=== PATIENT | female | born 1970 | race Caucasian/White ===

== ENCOUNTER 2016-05-10 13:18 | Inpatient (IN) | payer OTHER, MEDICARE ==
[~2016-05-10] VITALS: Ht 167.6 cm; Wt 89.5 kg
[~2016-05-10 13:18] MED LIST: LISI-519 PO
[2016-05-10 13:45] VITALS: BP 194/94; PULSE 85; RESP 17; TEMP 98.3; O2SAT 97
--- NOTE | 2016-05-10 14:07 | PD ---
HPI Chief Complaint: Psychiatric Symptoms Time Seen by Provider: 14:07 Travel History International Travel<30 days: No Contact w/Intl Traveler<30days: No Traveled to known affect area: No History of Present Illness HPI 45-year-old female presents to emergency department under Samaniego act for psychiatric evaluation. Patient has history of bipolar disorder, schizoaffective disorder. States that she should not be here and that she was trying to receive messages from the [employer]. Denies suicidal or homicidal ideations. Denies illicit drug use. Is concerned about her left discolored toenail and would like it evaluated. States that she was told that it will resolve on its own however she would like it tested. Denies any trauma. Denies any pain. PFSH Past Medical History Bipolar Disorder: Yes Anxiety: No Depression: No Cerebrovascular Accident: No Diminished Hearing: No Endocrine: No Gastrointestinal Disorders: No Genitourinary: No Hypertension: Yes Immune Disorder: No Implanted Vascular Access Dvce: No Musculoskeletal: No Neurologic: No Reproductive: No Respiratory: No Schizophrenia: Yes (??) Past Surgical History Ear Surgery: Yes Other Surgery: Yes (facial surger 1992, septum ) Social History Alcohol Use: No Tobacco Use: No Substance Use: No Allergies-Medications (Allergen,Severity, Reaction): Coded Allergies: No Known Allergies (Unverified , 03/14/16) Reported Meds & Prescriptions Reported Meds & Active Scripts Active Lisinopril 5 Mg Tab 5 Mg PO DAILY Review of Systems Except as stated in HPI: all other systems reviewed are Neg Physical Exam Narrative GENERAL: Well-nourished, well-developed female patient, with bizarre affect, labile moods, no acute distress SKIN: Warm and dry. Discoloration on the lateral aspect of the left great toenail. HEAD: Normocephalic. Atraumatic EYES: No scleral icterus. No injection or drainage. NECK: Supple, trachea midline. No JVD or lymphadenopathy. CARDIOVASCULAR: Regular rate and rhythm without murmurs, gallops, or rubs. RESPIRATORY: Breath sounds equal bilaterally. No accessory muscle use. GASTROINTESTINAL: Abdomen soft, non-tender, nondistended. MUSCULOSKELETAL: No cyanosis, or edema. Refill within normal limits. No erythema or edema. BACK: Nontender without obvious deformity. No CVA tenderness. Data Data Last Documented VS Vital Signs Date Time Temp Pulse Resp B/P Pulse Ox O2 Delivery O2 Flow Rate FiO2 05/10/16 20:49 52 18 150/79 98 Room Air 05/10/16 13:45 98.3 Orders Complete Blood Count With Diff (05/10/16 13:51) Comprehensive Metabolic Panel (05/10/16 13:51) Drug Screen, Random Urine (05/10/16 13:51) Psych Screen (05/10/16 13:51) Olanzapine Inj (Zyprexa Inj) (05/10/16 17:30) Diet Regular Basic (05/10/16 Dinner) Acetaminophen (Tylenol) (05/10/16 21:30) Magnesium Hydroxide Liq (Milk Of Magnesi (05/10/16 21:30) Al-Mag Hy-Si 40-40-4 Mg/Ml Liq (Mag-Al P (05/10/16 21:30) Nicotine 21 Mg Patch.24 Hr (Habitrol 21 (05/11/16 09:00) Remove Old Patch (05/11/16 21:00) Olanzapine Inj (Zyprexa Inj) (05/10/16 21:30) Lisinopril (Prinivil) (05/11/16 09:00) Labs Laboratory Tests Test 05/10/16 05/10/16 14:20 15:15 Urine Opiates Screen NEG Urine Barbiturates Screen NEG Urine Amphetamines Screen NEG Urine Benzodiazepines Screen NEG Urine Cocaine Screen NEG Urine Cannabinoids Screen NEG White Blood Count 6.2 TH/MM3 Red Blood Count 4.48 MIL/MM3 Hemoglobin 13.9 GM/DL Hematocrit 38.9 % Mean Corpuscular Volume 86.8 FL Mean Corpuscular Hemoglobin 31.1 PG Mean Corpuscular Hemoglobin 35.8 % Concent Red Cell Distribution Width 13.2 % Platelet Count 270 TH/MM3 Mean Platelet Volume 6.9 FL Neutrophils (%) (Auto) 65.3 % Lymphocytes (%) (Auto) 25.0 % Monocytes (%) (Auto) 8.3 % Eosinophils (%) (Auto) 0.9 % Basophils (%) (Auto) 0.5 % Neutrophils # (Auto) 4.1 TH/MM3 Lymphocytes # (Auto) 1.6 TH/MM3 Monocytes # (Auto) 0.5 TH/MM3 Eosinophils # (Auto) 0.1 TH/MM3 Basophils # (Auto) 0.0 TH/MM3 CBC Comment DIFF FINAL Differential Comment Sodium Level 141 MEQ/L Potassium Level 4.2 MEQ/L Chloride Level 108 MEQ/L Carbon Dioxide Level 26.9 MEQ/L Anion Gap 6 MEQ/L Blood Urea Nitrogen 13 MG/DL Creatinine 0.73 MG/DL Estimat Glomerular Filtration 86 ML/MIN Rate Random Glucose 100 MG/DL Calcium Level 9.1 MG/DL Total Bilirubin 0.6 MG/DL Aspartate Amino Transf 13 U/L (AST/SGOT) Alanine Aminotransferase 22 U/L (ALT/SGPT) Alkaline Phosphatase 57 U/L Total Protein 7.5 GM/DL Albumin 4.1 GM/DL MDM Medical Decision Making Medical Screen Exam Complete: Yes Emergency Medical Condition: Yes Medical Record Reviewed: Yes Differential Diagnosis Disorder versus personality disorder versus adjustment reaction disorder Narrative Course 45-year-old female presents to emergency department for evaluation. Patient feels that the FBI is attempting to get her. She has extensive psychiatric history. She appears without distress. Vital signs stable. Patient is imminently disruptive here in the triage ambulance call, arguing with other patients and staff. Lab work is without acute concern. Toxicology is negative. She is medically cleared to undergo psychiatric screening for further evaluation and disposition. Mental health screening discussed with the patient. Psychiatric screen ordered. Diagnosis Primary Impression: Paranoid personality disorder Condition: Stable Yolande Huang May 10, 2016 14:07
[2016-05-10 15:43] LABS: AUTOMATED NEUTROPHIL # 4.1 TH/MM3 (1.8-7.7); BASOPHIL % 0.5 % (0.0-2.0); EOSINOPHIL # 0.1 TH/MM3 (0-0.4); EOSINOPHIL % 0.9 % (0.0-4.0); HEMATOCRIT 38.9 % (35.0-46.0); HEMO FLAGS DIFF FINAL; LYMPHOCYTE # 1.6 TH/MM3 (1.0-4.8); MEAN CELL VOLUME 86.8 FL (80.0-100.0); MEAN CORPUSCULAR HEMOGLOBIN 31.1 PG (27.0-34.0); MEAN CORPUSCULAR HGB CONC 35.8 % (32.0-36.0); MONO % 8.3 % (0.0-8.0); NEUT % 65.3 % (16.0-70.0); PLATELET COUNT 270 TH/MM3 (150-450); RED BLOOD COUNT 4.48 MIL/MM3 (4.00-5.30); RED CELL DISTRIBUTION WIDTH 13.2 % (11.6-17.2); WHITE BLOOD COUNT 6.2 TH/MM3 (4.0-11.0)
[2016-05-10 16:08] LABS: ANION GAP 6 MEQ/L (5-15); AST (GOT) 13 U/L (15-37); BICARBONATE 26.9 MEQ/L (21.0-32.0); BLOOD UREA NITROGEN 13 MG/DL (7-18); CHLORIDE 108 MEQ/L (98-107); GLOMERULAR FILTRATION RATE 86 ML/MIN (>89); POTASSIUM 4.2 MEQ/L (3.5-5.1); SODIUM (NA) 141 MEQ/L (136-145)
[2016-05-10 16:12] LABS: ALKALINE PHOSPHATASE 57 U/L (45-117); ALT (GPT) 22 U/L (10-53); TOTAL BILIRUBIN ADULT 0.6 MG/DL (0.2-1.0)
[2016-05-10] MEDS ORDERED: OLANZapine IM 10 MG VIAL IM ONE (17:30)
[2016-05-10 18:25] LABS: AMPHETAMINE, URINE NEG (NEG); BARBITURATES, URINE NEG (NEG); COCAINE, URINE NEG (NEG)
[2016-05-10 18:26] VITALS: BP 179/100; PULSE 79; RESP 18; O2SAT 98
[2016-05-10 20:49] VITALS: BP 150/79; PULSE 52; RESP 18; O2SAT 98
[2016-05-10] MEDS ORDERED: OLANZapine IM 10 MG VIAL IM PRN (21:30)
[2016-05-10] MEDS ORDERED: ACETAMINOPHEN 325 MG TAB PO PRN (21:30)
[2016-05-10] MEDS ORDERED: MAGNESIUM HYDROXIDE SUSP 30 ML CUP PO PRN (21:30)
[2016-05-10] MEDS ORDERED: ALUMINUM/MAGNESIUM/SIMETH 30 ML CUP PO PRN (21:30)
[2016-05-10 22:44] VITALS: BP 150/77; PULSE 51; RESP 17; O2SAT 98
[2016-05-10 23:45] VITALS: BP 145/67; PULSE 66; RESP 18; TEMP 97.8; O2SAT 100
[2016-05-11 05:41] VITALS: PULSE 52; RESP 18; TEMP 97
[2016-05-11 05:42] VITALS: BP 130/78
[2016-05-11] MEDS ORDERED: NICOTINE 21 MG/24 HR PATCH T-DERMAL SCH (09:00)
[2016-05-11] MEDS ORDERED: LISINOPRIL 5 MG TAB PO SCH (09:00)
--- NOTE | 2016-05-11 10:52 | MH ---
cc: SAPNA MARTI MD DATE OF ADMISSION: 05/10/2016 ADMISSION DIAGNOSES 1. 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 LEGAL STATUS The patient is presently capacitated to consent for admission and medications. She is declining voluntary psychiatric admission and so I will discharge her from the inpatient psychiatric unit today. HISTORY OF PRESENT ILLNESS Ms. Guevara is a 45-year-old female with a history of paranoid personality disorder, alternately diagnosed in the past as a primary psychotic disorder, who presents under a Samaniego Act from the [employer] alleging that the patient "Presented psychotic symptoms of delusion and related that she had no food to feed herself. The is refusing to take her medications, and related she would soon be homeless." The patient was brought to [facility] and was apparently somewhat agitated in the ED and received Zyprexa 10 mg IM once. She has since been calm per nursing report. Reviewing the electronic medical record, this is the patient's fifth inpatient psychiatric admission here since September 2015. The patient is seen and examined with counselor. Chart reviewed. Case discussed with nursing staff. The patient is well-known to me from prior inpatient psychiatric contacts. On my examination today, she appears to be at her psychiatric baseline. She continues to display several signs of paranoid personality disorder including fault finding, tendency to assume malign goals in benign activities, grudge holding and other behaviors. She tells a long, discursive narrative of the circumstances of her presentation here and when I endeavored to interrupt her to ask more present-focused questions, she rebuffs me and resumes her narrative. She does say that she continues to reside at the [facility] and was having some difficulties with paying her electric bill as she felt that the bill was larger than it should have been. She articulates difficulties in dealing with [employer]. She says this is apparently what she had related to the social media content specialist that Danette Acted her that led the social media content specialist to believe that she was having financial issues. She says that she has the money but just disputes the bill. She says "I'm not suicidal. I'm not schizophrenic. I went to the [place]. I'm on foot because my car has been towed and my license has been suspended. I had a nice breakfast at the [facility]. I made it to the primary care office at the [place] on [address]" because she reports that she has some issues with a left great toe lesion. She says that she was Samaniego Act'd and brought to the ED. She says "They were getting pissed off at me for no reason." In the ED she says that she got into a verbal conflict with a nurse in the ED who was trying to draw her blood and she was given the p.r.n. Zyprexa as a result. She complains mightily about her treatment in the ED, not inconsistent with someone with paranoid personality disorder. Presently she denies any suicidal ideation, homicidal ideation or audiovisual hallucinations. She appears to be attending to her basic needs. The remainder of the psychiatric ROS is negative. PAST PSYCHIATRIC HISTORY The patient vehemently denies that she has a primary psychotic disorder or other psychiatric illness. She is not presently under outpatient psychiatric care, nor is she taking any psychotropic medications. She does have multiple prior psychiatric admissions within our system, most of short duration, as I said. FAMILY HISTORY The patient describes some sort of mental illness in a sibling but otherwise denies. CHEMICAL DEPENDENCY HISTORY The patient denies. SOCIAL HISTORY The patient is once again loath to provide extensive details regarding her social situation. She does say that she continues to reside at the [facility]. She is an [employer] and receives disability benefits. PAST MEDICAL HISTORY See electronic medical record. MEDICATIONS The patient reportedly takes none. ALLERGIES No known allergies. REVIEW OF SYSTEMS No reported physical symptoms today. Somewhat limited due to patient's un-cooperativeness. PHYSICAL EXAMINATION Physical examination was completed in the emergency room by the ER staff and the patient was medically cleared for psychiatric admission. On my examination today, the patient appears to be in no acute physical distress. She is well-nourished and well-developed. No abnormal motor movements are noted. Steady gait and station. The patient does have a small, brown lesion under the nail on her left great toe. Labs and vital signs are reviewed. The patient's temperature is 97.0, pulse rate 52 per minute, respiratory rate 18 and blood pressure 130/78. She is satting most recently 100% on room air. MENTAL STATUS EXAMINATION The patient is casually dressed. She is fairly well-groomed and certainly maintaining basic hygiene. She is awake and alert and oriented to person and hospital as well as date. No signs of delirium. No abnormal motor movements noted. Steady gait and station. Speech is somewhat of voluminous but otherwise within normal limits for rate, tone and volume. Language and fund of knowledge seem at least average for age. Mood is, as is typical for the patient, somewhat dysphoric and affect is restricted. Thought process circumstantial, at times tangential, but without significant loosening of associations. The patient does have paranoia consistent with her paranoid personality disorder. She denies AVH and does not appear internally stimulated. She denies suicidal or homicidal ideation. Insight and judgment are [id number] at best, likely chronically so. ASSESSMENT AND PLAN This is a 45-year-old female with psychiatric history as detailed above who presents under a Samaniego Act. On my examination today, the patient is at her psychiatric baseline. She denies any suicidal or homicidal ideation. She appears to be attending to her basic needs. It sounds like she was just trying to get some help for a left great toe lesion. She would likely benefit from psychotropic medication treatment (for example, a low dose of an antipsychotic could lessen the paranoia attendant with her personality disorder), but as is typical for patients with her disorder she is extremely reluctant to seek care voluntarily. She does not meet Samaniego Act criteria at this time after weighing the acute, chronic, and protective factors, and I think that involuntarily hospitalizing her in any event would be actively counterproductive as she would no doubt bristle and react negatively to the notion of being retained involuntarily on the inpatient psychiatric unit, especially if she was medicated over her objection. I think the merits of such an approach are greatly outweighed by the demerits, both immediately and in the long-term of driving her even further from any desire to seek psychiatric care. Therefore, I think it is the better part of valor to accede to her wishes and allow her to leave the inpatient psychiatric unit today. I have counseled her as always to return to the psychiatric emergency room for any concerning symptoms. We will also refer her to primary care and to podiatry for the foot lesion. The patient is to be discharged home today in stable condition inasmuch as she is at her psychiatric baseline with psychiatric follow-up as arranged by counselor. The patient is also to follow-up with senior medical transcriptionist as detailed above. No Rx from me. Please note this document serves also as my discharge summary. Bharti ALCANTARA /9:46 AM /10:26 AM MTDLuis
[2016-05-11] MEDS ORDERED: REMOVE OLD NICOTINE PATCH T-DERMAL SCH (21:00)
== END 2016-05-11 13:10 | disposition home or self-care (01) | DRG 883 ==
LOC: NEPJ 13:18 → NEDA 23:07 → H270 05-11 00:05
PROVIDERS: ADMIT Psychiatry & Neurology Psychiatry; ATTEND Psychiatry & Neurology Psychiatry
DX: F60.0 Paranoid personality disorder (principal); I10 Essential (primary) hypertension
CPT/HCPCS: 80053; 80307; 85025; 96372

== ENCOUNTER 2016-05-24 16:56 | Inpatient (IN) | payer OTHER ==
[~2016-05-24] VITALS: Ht 165.1 cm; Wt 90.5 kg
--- NOTE | 2016-05-24 17:40 | PD ---
HPI Chief Complaint: ex parte Time Seen by Provider: 17:40 Travel History International Travel<30 days: No Contact w/Intl Traveler<30days: No History of Present Illness HPI 45-year-old female with a history of hypertension, bipolar disorder and schizophrenia is brought to the emergency department under ex parte for psychiatric evaluation. Per the documentation the patient's sister reports that her thoughts are scattered and she is unable to care for herself. The patient's speech is tangential. She denies any medical complaints. She admits to drinking alcohol today. Denies any drug use. Denies suicidal ideations. Admits to vague homicidal ideations. She denies any fever, chills, nausea, vomiting, lightheadedness, dizziness, chest pain, shortness of breath, abdominal pain. No other complaints. PFSH Past Medical History Bipolar Disorder: Yes Anxiety: No Depression: No Cardiovascular Problems: Yes (See EMR) Cerebrovascular Accident: No Diminished Hearing: No Endocrine: No Gastrointestinal Disorders: No Genitourinary: No Hypertension: Yes Immune Disorder: No Implanted Vascular Access Dvce: No Musculoskeletal: No Neurologic: No Reproductive: No Respiratory: No Schizophrenia: Yes Past Surgical History Ear Surgery: Yes Other Surgery: Yes (facial surger 1992, septum ) Social History Alcohol Use: No Tobacco Use: No Substance Use: No Allergies-Medications (Allergen,Severity, Reaction): Coded Allergies: No Known Allergies (Unverified , 05/24/16) Reported Meds & Prescriptions Reported Meds & Active Scripts Active No Active Prescriptions or Reported Medications Review of Systems Except as stated in HPI: all other systems reviewed are Neg Physical Exam Narrative GENERAL: Well-nourished and well-developed female patient in no acute distress who is nontoxic appearing. SKIN: Warm and dry. HEAD: Normocephalic and atraumatic. EYES: No injection, drainage, or hyphema noted. PERRLA. EOMI. ENT: No nasal drainage noted. Oropharynx is clear. NECK: Supple and the trachea is midline. CARDIOVASCULAR: Regular rate and rhythm. RESPIRATORY: Breath sounds are equal bilaterally with no accessory muscle use, wheezing, rhonchi, or crackles. GASTROINTESTINAL: Abdomen is soft, non-tender, and nondistended. MUSCULOSKELETAL: No obvious deformities, swelling, cyanosis, or ecchymosis is present throughout the upper and lower extremities. Patient has full range of motion without any signs of neurovascular compromise. NEUROLOGICAL: Awake, alert, and oriented. Normal speech and gait. Cranial nerves are grossly intact. PSYCHIATRIC: Tangential speech with some disorganized thought. No hallucinations. Data Data Last Documented VS Vital Signs Date Time Temp Pulse Resp B/P Pulse Ox O2 Delivery O2 Flow Rate FiO2 05/24/16 22:16 75 18 172/86 97 Room Air 05/24/16 17:57 98.7 Orders Complete Blood Count With Diff (05/24/16 17:40) Comprehensive Metabolic Panel (05/24/16 17:40) Drug Screen, Random Urine (05/24/16 17:40) Alcohol (Ethanol) (05/24/16 17:40) Psych Screen (05/24/16 17:40) MDM Medical Decision Making Medical Screen Exam Complete: Yes Emergency Medical Condition: Yes Differential Diagnosis Differential: Depression versus adjustment reaction versus anxiety versus PTSD versus psychosis NOS versus mood disorder NOS versus substance induced mood disorder versus ODD versus adjustment reaction versus schizophrenia versus bipolar disorder versus schizoaffective versus electrolyte abnormality versus dementia versus malingering. Narrative Course Patient presents under ex parte. Physical examination and vital signs are essentially unremarkable. Patient has no medical complaints to report. Psych screen has been ordered. If the laboratory results are unremarkable, the patient will be medically cleared for psychiatric evaluation and disposition. 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
[2016-05-24 17:57] VITALS: BP 172/100; PULSE 95; RESP 16; TEMP 98.7; O2SAT 98
[2016-05-24 22:16] VITALS: BP 172/86; PULSE 75; RESP 18; O2SAT 97
[2016-05-24 23:40] LABS: AUTOMATED NEUTROPHIL # 3.8 TH/MM3 (1.8-7.7); BASOPHIL % 0.5 % (0.0-2.0); EOSINOPHIL # 0.1 TH/MM3 (0-0.4); HEMATOCRIT 40.4 % (35.0-46.0); HEMO FLAGS DIFF FINAL; LYMPH % 33.4 % (9.0-44.0); LYMPHOCYTE # 2.3 TH/MM3 (1.0-4.8); MEAN CELL VOLUME 86.2 FL (80.0-100.0); MEAN CORPUSCULAR HEMOGLOBIN 30.1 PG (27.0-34.0); MEAN CORPUSCULAR HGB CONC 34.9 % (32.0-36.0); MONO % 7.9 % (0.0-8.0); NEUT % 56.2 % (16.0-70.0); PLATELET COUNT 277 TH/MM3 (150-450); RED BLOOD COUNT 4.69 MIL/MM3 (4.00-5.30); RED CELL DISTRIBUTION WIDTH 13.2 % (11.6-17.2); WHITE BLOOD COUNT 6.8 TH/MM3 (4.0-11.0)
[2016-05-25 00:08] LABS: ANION GAP 6 MEQ/L (5-15); AST (GOT) 14 U/L (15-37); BICARBONATE 29.9 MEQ/L (21.0-32.0); BLOOD UREA NITROGEN 9 MG/DL (7-18); CHLORIDE 106 MEQ/L (98-107); GLOMERULAR FILTRATION RATE 86 ML/MIN (>89); POTASSIUM 3.9 MEQ/L (3.5-5.1); SODIUM (NA) 142 MEQ/L (136-145)
[2016-05-25 00:11] LABS: ALKALINE PHOSPHATASE 69 U/L (45-117); ALT (GPT) 29 U/L (10-53); TOTAL BILIRUBIN ADULT 0.5 MG/DL (0.2-1.0)
[2016-05-25 02:00] VITALS: BP 196/98; PULSE 63; RESP 16; O2SAT 95
[2016-05-25 06:46] VITALS: BP 160/85; PULSE 71; RESP 19; O2SAT 99
[2016-05-25 12:12] VITALS: BP 161/93; PULSE 63; RESP 18; O2SAT 97
--- NOTE | 2016-05-25 16:27 | PD ---
History of Present Illness Chief Complaint: Medical Clearance Time Seen by Provider: 13:30 Travel History International Travel<30 Days: No Contact w/Intl Traveler<30days: No Known affected area: No Legal Status Legal Status: Ex Parte (requested by her brother) Danette Act Signed By: Signed by [facility] Judge Naa Samaniego Act Comment: Signed by [facility] Judge Naa Cotter History of Present Illness: History of Present Illness 45-year-old female with a history of bipolar disorder and schizophrenia who is brought to the emergency department under ex parte for psychiatric evaluation. Per the documentation the patient's brother reports that her thoughts are scattered and she is unable to care for herself. It is reported that she has been evicted from her apartment due to her verbal outbursts with other tenants and her erratic behavior. It is also reported that she has not been taking care of herself and has not been eating. She presents with weight loss from previous visit. Ms. Vince Dias a director social welfare from the [facility] has contacted me several times attempting to get patient into the [facility] in [facility]. She has reported to me that she is aware that this patient has not been caring for herself and is unstable. I have communicated with Rey, bed coordinator at [facility] in [facility] and initially he reported that there was bed availability for this patient and then at a later time reported that review of this case would have to wait until tomorrow morning. Ms. Guevara is alert, oriented. She is irritable and uncooperative with staff' s request including to change into hospital attire and to remain in her room without interfering with the care of other patient's. She refuses to answer any of my questions and instead she presents me with a list of random complaints regarding the apartment complex she lives in, the [place], etc. She appears to be paranoid. She does not accept redirection well.When she does engage her thoughts are disorganized and she is tangential. She talks about many different subjects including needing to take care of the fungus in her feet. Patient became increasingly more agitated as well as increasingly more disorganized in her presentation requiring ETO . PFSH Past Medical History Bipolar Disorder: Yes Anxiety: No Depression: No Cardiovascular Problems: Yes (See EMR) Cerebrovascular Accident: No Diminished Hearing: No Endocrine: No Gastrointestinal Disorders: No Genitourinary: No Hypertension: Yes Immune Disorder: No Implanted Vascular Access Dvce: No Musculoskeletal: No Neurologic: No Reproductive: No Respiratory: No Schizophrenia: Yes ?: Not Past Surgical History Ear Surgery: Yes Other Surgery: Yes (facial surger 1991, septum ) Psychiatric History Psychiatric History Hx Psychiatric Treatment: HX OF SCHIZOAFFECTIVE DISORDER. Has had multiple [place] [facility] [place]. History of Inpatient Treatment: Yes Guns or firearms in home: No Social History Single female, lives alone in her apartment. She has been evicted from her apartment. Hx Alcohol Use: Yes (4 GUINESS) Hx Tobacco Use: No Hx of Substance Use Treatment: No Family Psychiatric History Unavailable Allergies-Medications (Allergen,Severity, Reaction): Coded Allergies: No Known Allergies (Unverified , 05/24/16) Reported Meds & Prescriptions Reported Meds & Active Scripts Active No Active Prescriptions or Reported Medications Review of Systems ROS Limitations: Psychotic Exam Alert: Yes Mood: Agitated Affect: Labile Speech: Illogical, Tangential, Flight of Ideas Eye Contact: Normal Memory Intact: Comment (not tested) Hallucinations: Auditory (appears internally preocupied. ) Delusions: Yes Delusion Type: Paranoid Suicidal: Ideation (unable to assess) Homicidal: Ideation (unable to assess.) Insight/Judgement poor. impaired. MDM Medical Decision Making Medical Record Reviewed: Yes Assessment/Plan 45 year old female under an exparte. At this time the patient presents as psychotic with disorganized thoughts, tangential, paranoid, agitated. Requires inpatient treatment to stabilize. We have attempted to have patient admitted to the [facility] facility as the director social welfare at the [facility] has requested that this patient be admitted to their facility.She will also be [facility] at [facility], [facility] and other [facility] hospitals. Orders Complete Blood Count With Diff (05/24/16 17:40) Comprehensive Metabolic Panel (05/24/16 17:40) Drug Screen, Random Urine (05/24/16 17:40) Alcohol (Ethanol) (05/24/16 17:40) Psych Screen (05/24/16 17:40) Diet Regular Basic (05/25/16 Breakfast) Diet Regular Basic (05/25/16 Lunch) Diet Regular Basic (05/25/16 Dinner) Results Vital Signs Date Time Temp Pulse Resp B/P Pulse Ox O2 Delivery O2 Flow Rate FiO2 05/25/16 12:12 63 18 161/93 97 Room Air 05/25/16 06:46 71 19 160/85 99 Room Air 05/25/16 02:00 63 16 196/98 95 Room Air 05/24/16 22:16 75 18 172/86 97 Room Air 05/24/16 17:57 98.7 95 16 172/100 98 Laboratory Tests Test 05/24/16 23:17 White Blood Count 6.8 Red Blood Count 4.69 Hemoglobin 14.1 Hematocrit 40.4 Mean Corpuscular Volume 86.2 Mean Corpuscular Hemoglobin 30.1 Mean Corpuscular Hemoglobin 34.9 Concent Red Cell Distribution Width 13.2 Platelet Count 277 Mean Platelet Volume 7.0 Neutrophils (%) (Auto) 56.2 Lymphocytes (%) (Auto) 33.4 Monocytes (%) (Auto) 7.9 Eosinophils (%) (Auto) 2.0 Basophils (%) (Auto) 0.5 Neutrophils # (Auto) 3.8 Lymphocytes # (Auto) 2.3 Monocytes # (Auto) 0.5 Eosinophils # (Auto) 0.1 Basophils # (Auto) 0.0 CBC Comment DIFF FINAL Differential Comment Sodium Level 142 Potassium Level 3.9 Chloride Level 106 Carbon Dioxide Level 29.9 Anion Gap 6 Blood Urea Nitrogen 9 Creatinine 0.73 Estimat Glomerular Filtration 86 Rate Random Glucose 102 Calcium Level 8.8 Total Bilirubin 0.5 Aspartate Amino Transf 14 (AST/SGOT) Alanine Aminotransferase 29 (ALT/SGPT) Alkaline Phosphatase 69 Total Protein 7.4 Albumin 3.9 Ethyl Alcohol Level LESS THAN 3 Diagnosis Primary Impression: Schizoaffective disorder, bipolar type Additional Impression: Schizophrenia Prescriptions No Active Prescriptions or Reported Meds Problem Qualifiers Additional Impression: Schizophrenia 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
[2016-05-25] MEDS ORDERED: LORazepam 2 MG/ML VIAL ONE (16:42)
[2016-05-25] MEDS: diphenhydrAMINE HCL 50 MG/ML VIAL IM PRN (16:50)
[2016-05-25] MEDS ORDERED: OLANZapine IM 10 MG VIAL IM ONE (17:00)
[2016-05-25] MEDS ORDERED: LORazepam 2 MG/ML VIAL IM ONE (17:00)
[2016-05-25 18:58] VITALS: BP 164/108; PULSE 78; RESP 18; O2SAT 98
[2016-05-25 22:18] VITALS: BP 133/86; PULSE 63; RESP 18; TEMP 97.6; O2SAT 98
[2016-05-26 02:13] VITALS: BP 166/71; PULSE 84; RESP 19; O2SAT 99
[2016-05-26 06:13] VITALS: BP 170/90; PULSE 62; RESP 18; TEMP 97.8; O2SAT 97
[2016-05-26 15:06] VITALS: BP 166/78; PULSE 88; RESP 18; O2SAT 98
[2016-05-26 18:30] VITALS: BP 186/100; PULSE 80; RESP 18; O2SAT 100
[2016-05-26 18:31] VITALS: BP 163/81; PULSE 88; RESP 18; O2SAT 90
[2016-05-26] MEDS: cloNIDine HCL 0.1 MG TAB PO PRN (21:14)
[2016-05-26 22:20] VITALS: BP 195/85; PULSE 80; RESP 16; O2SAT 97
[2016-05-27] MEDS: diphenhydrAMINE HCL 50 MG/ML VIAL IM PRN (00:39)
[2016-05-27 05:17] VITALS: BP 181/98; PULSE 95; RESP 18; TEMP 97.4; O2SAT 97
[2016-05-27 06:27] VITALS: BP 155/98; PULSE 76; RESP 19; TEMP 97.5; O2SAT 99
[2016-05-27] MEDS ORDERED: OLANZapine IM 10 MG VIAL IM ONE ×2 (09:40→09:45)
[2016-05-27] MEDS ORDERED: MAGNESIUM HYDROXIDE SUSP 30 ML CUP PO PRN (10:00)
[2016-05-27] MEDS ORDERED: ACETAMINOPHEN 325 MG TAB PO PRN (10:00)
[2016-05-27] MEDS ORDERED: ALUMINUM/MAGNESIUM/SIMETH 30 ML CUP PO PRN (10:00)
[2016-05-27 12:21] VITALS: BP 145/106; PULSE 71; RESP 18; TEMP 98.2; O2SAT 99
[2016-05-27] MEDS ORDERED: BENZTROPINE MESYLATE 1 MG TAB PO PRN (12:30)
[2016-05-27] MEDS ORDERED: BENZTROPINE MESYLATE 2 MG/2 ML VIAL IM PRN (12:30)
[2016-05-27] MEDS ORDERED: LORazepam 2 MG TAB PO PRN (12:30)
--- NOTE | 2016-05-27 15:29 | PD.CONS ---
[facility] Reason for Consult Hypertension Primary Care Physician Unknown Diagnoses: History of Present Illness This is a 45-year-old female patient with past medical history which includes bipolar, schizophrenia, hypertension. Patient currently in inpatient psychiatric center we have been consulted for subsequent management of hypertension. Patient reports she does have a history of hypertension and was on medication at one time but has not taken this for a long time. Patient does not recall the name of the medication she was previously on. Patient denies changes in vision feeling lightheaded or dizzy. Patient complains of, "disgusting looking," feet and irregular periods. Patient offers no other medical complaints at this time she denies chest pain shortness of breath nausea vomiting diarrhea constipation fevers or chills. Review of Systems Other All other systems reviewed and negative except as mentioned in history of present illness Past Family Social History Allergies: Coded Allergies: No Known Allergies (Unverified , 05/24/16) Past Medical History Hypertension, bipolar, schizophrenia Past Surgical History Right ear surgery, septoplasty Reported Medications No Active Prescriptions or Reported Medications Active Ordered Medications Current Medications Medications (Trade) Dose Ordered Sig/Tim Route Start Time Stop Time Status Last Admin (Catapres) 0.1 mg Q6H PRN PO 05/26/16 20:30 (Tylenol) 650 mg Q4H PRN PO 05/27/16 10:00 (Milk Of Magnesia Liq) 30 ml DAILY PRN PO 05/27/16 10:00 (Mag-Al Plus Susp Liq) 30 ml Q6H PRN PO 05/27/16 10:00 (Habitrol 21 Mg Patch.24 Hr) 1 patch DAILY T-DERMAL 05/28/16 09:00 (Ativan) 2 mg Q6H PRN PO 05/27/16 12:30 (Ativan Inj) 2 mg Q6H PRN IM 05/27/16 12:30 (Cogentin) 1 mg Q12HR PRN PO 05/27/16 12:30 (Cogentin Inj) 1 mg Q12HR PRN IM 05/27/16 12:30 (Benadryl) 50 mg HS PRN PO 05/27/16 12:30 Family History Father has history of, "heart surgery." Social History EtOH use is occasional Denies tobacco use Denies illicit drug use Physical Exam Vital Signs Vital Signs Date Time Temp Pulse Resp B/P Pulse Ox O2 Delivery O2 Flow Rate FiO2 05/27/16 12:21 98.2 71 18 145/106 99 05/27/16 06:27 97.5 76 19 155/98 99 Room Air 05/27/16 05:17 97.4 95 18 181/98 97 Room Air Manual Cuff/Auscultation 05/26/16 22:20 80 16 195/85 97 Room Air 05/26/16 18:30 80 18 186/100 100 Room Air Physical Exam GENERAL: This is a well-nourished, well-developed patient, who is screaming with rapid tangential in speech SKIN: No rashes, ecchymoses or lesions. Cool and dry. HEAD: Atraumatic. Normocephalic. No temporal or scalp tenderness. EYES: No scleral icterus. No injection or drainage. CARDIOVASCULAR: Regular rate and rhythm without murmurs, gallops, or rubs. RESPIRATORY: Clear to auscultation. Breath sounds equal bilaterally. No wheezes , rales, or rhonchi. GASTROINTESTINAL: Abdomen soft, non-tender, nondistended. No hepato-splenomegaly , or palpable masses. No guarding. MUSCULOSKELETAL: Extremities without clubbing, cyanosis, or edema. No joint tenderness, effusion, or edema noted. No calf tenderness. Negative Homans sign bilaterally. NEUROLOGICAL: Awake and alert. Motor and sensory grossly within normal limits. Five out of 5 muscle strength in all muscle groups. Result Diagram: 05/24/16231605/24/162316 Assessment and Plan Assessment and Plan This is a 45-year-old female patient with past medical history which includes bipolar, schizophrenia, hypertension. Patient currently in inpatient psychiatric center we have been consulted for subsequent management of hypertension. Bipolar Schizophrenia Management versus psychiatric team Hypertension urgency Recommend starting Norvasc 5 mg by mouth daily she adamantly refuses to take blood pressure pills of any kind Patient changes her mind once her schizophrenia/bipolar is better managed recommend starting Norvasc 5 mg daily Also offered patient 0.2 mg clonidine patch patient also refused adamantly Irregular periods recommend patient follow-up with outpatient [facility] after discharge Concerns with the recommend patient follow up with installation specialist ventricular discharge DVT prophylaxis patient is ambulatory Discussed plan of care with patient and RN No further recommendations at this time will sign off if patient's condition changes or further assistance is needed please reconsult Written by Katherine Pitt, acting as scribe for Dr. Bhatti on 05/27/16 at 15 :34. The documentation accurately reflects the work performed [id number] by me on at 15:34. Katherine Pitt May 27, 2016 15:28 Ortiz Bhatti DO May 27, 2016 16:03
--- NOTE | 2016-05-27 15:42 | HHI.HP ---
Provisional Diagnosis Admission Date May 27, 2016 at 09:57 [place] I. 1. Other psychotic disorder [place] II. 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 GAF is 30 presently. Certification of Person's Competence To Provide Express and Informed Consent I have personally examined Viola Guevara , a person being served at [facility] on, May 27, 2016 15:41. Express and informed consent means consent voluntarily given in writing, by a competent person, after sufficient explanation and disclosure of the subject matter involved to enable the person to make a knowing and willful decision without any element of force, fraud, deceit, duress, or other form of constraint or coercion. This person is 18 years of age or older, is not now known to be incompetent to consent to treatment with a guardian advocate, and does not have a health care surrogate or proxy currently making medical treatment decisions. I have found this person to be one of the following: [] Competent to provide express and informed consent, as defined above, for voluntary admission to this facility and is competent to provide express and informed consent for treatment. He/she has the consistent capacity to make well reasoned, willful, and knowing decisions concerning his or her medical or mental health treatment. The person fully and consistently understands the purpose of the admission for examination/placement and is fully capable of personally exercising all rights assured [place] [x] Incompetent to provide express and informed consent to voluntary admission, and this is incompetent to provide express and informed consent to treatment. The person must be transferred to involuntary status and a petition for a guardian advocate filed with the Circuit Court. [] Refusing to provide express and informed consent to voluntary admission but is competent to provide express and informed consent for treatment. The person must be discharged or transferred to involuntary status. Form shall be completed within 24 hours of a person's arrival at the receiving facility and filed in the clinical record of each person: 1. Admitted on a voluntary basis 2. Permitted to provide express and informed consent to his/her own treatment 3. Allowed to transfer from involuntary to voluntary status 4. Prior to permitting a person to consent to his or her own treatment after having been previously found incompetent to consent to treatment. History of Present Illness Capacity: Lacks Capacity HPI Ms. Guevara is a 45 year-old female with a history of psychotic disorder versus paranoid personality disorder who presented to the ED under an ex parte order initiated by her brother, Brant Preston. I have reviewed Mr. Preston's affidavit in some detail and it indicates that the patient has been experiencing paranoia and neglect of her affairs including not buying any food and allowing her electric to be turned off. Appended to the ex parte order is a narrative from the property man at the patient's rental property detailing over a week's worth of behaviors prior to the new year. Patient is well known to me from previous hospitalizations, most recently a brief stay about 2 weeks ago. Of note, patient is presently experiencing hypertensive urgency per hospitalist cancer program consultant's notes and is refusing antihypertensives. Patient seen and examined with counselor and RN. Chart reviewed. Case discussed with RN. Patient presents today as more frankly disorganized and paranoid than is typical for her. She is quite irritable and dysphoric. She initially refuses to conduct the interview until the nurse brings her a towel to wipe some chocolate syrup off her face. The nurse complies, and the patient berates him for bringing her the wrong kind of towel and says, "fuck it, let's go Daniel [referring to me]. My face is dirty; I can't see. My ovaries work. None of your business." When I ask what brought her into the hospital, she says , "a bottle of [place] Telles. Officer Robots knocked on my door. Round and round we go. Where we stop, no one know. I'm being kicked out of my apartment. I need a public health advisor. I don't want to talk to Helen or Juan Carlos. I need a public health advisor, not just someone that wants to get famous and meet Krishan Her." When I inquire as to whether she is concerned about her seriously elevated blood pressure, she replies, "I've been drinking quite a bit of soda, and their uniform is awesome, too. If [facility] says I can leave today. My Aunt Love who took me to [facility]. Do we have identity theft here in [place], Dr. Sanchez?" She then goes on a tirade against her brother, noting "he must have a powerful penis to put me in here." Limited psychiatric interview because of patient's degree of psychiatric impairment. I'm called from the unit after departing by the nurse who notes that the patient is growing increasingly aggressive and agitated. She had been medicated with Zyprexa IM in the ED about 6 hours ago. I have ordered her medicated now with Haldol, Ativan and Benadryl IM ETO. I did obtain collateral from patient's brother Mr. Preston [phone] given the patient's degree of psychiatric impairment on this occasion. He notes that the patient used to do well on a long-acting injectable antipsychotic but has been off of that for about a year. He notes that her problematic behaviors have escalated quite a bit within the last several weeks and she has now been evicted from her house. He is very concerned for his sister's safety and well- being and is hopeful that we can provide some treatment that will help. I additionally obtained collateral from patient's case finisher at the [facility] Vince Blake [phone]. Ms. Blake also expresses a great deal of concern for patient' s mental state and notes that she had been doing very well on Invega Sustenna injections before becoming nonadherent with these in July 2015. She reportedly tolerated these medications well without any noted side effects. Ms. Blake would like to meet with the patient after the weekend to see if she would be willing to go voluntarily to a [facility] treatment facility. I am unable to obtain any past psychiatric, family, chemical dependency or social history from the patient at this time given her degree of psychiatric impairment, but I did obtain these during my history and physical examination earlier this month under visit number [id number]. Review of Systems ROS Limitations: Psychotic, Poor Historian Other No reported somatic complaints to me. Past Psych History Psychological trauma history Unable to obtain from patient. Violence risk - others (6 mos) Elevated. Patient is quite paranoid and unpredictable. Violence risk - self (6 mos) Elevated. Concern chiefly is for self-neglect. Substance Abuse History Drugs/Alcohol past 12 months See above. Alcohol level was undetectable in the ED. Past Family Social History Coded Allergies: No Known Allergies (Unverified , 05/24/16) Past Medical History Includes a history of hypertension. See electronic medical record. Discontinued Scripts Lisinopril 5 Mg Tab5 Mg PO DAILY #30 TAB Ref 0 Prov:Jorge Peace MD 03/14/16 Current Medications Medications (Trade) Dose Ordered Sig/Tim Route Start Time Stop Time Status Last Admin (Catapres) 0.1 mg Q6H PRN PO 05/26/16 20:30 (Tylenol) 650 mg Q4H PRN PO 05/27/16 10:00 (Milk Of Magnesia Liq) 30 ml DAILY PRN PO 05/27/16 10:00 (Mag-Al Plus Susp Liq) 30 ml Q6H PRN PO 05/27/16 10:00 (Habitrol 21 Mg Patch.24 Hr) 1 patch DAILY T-DERMAL 05/28/16 09:00 (Ativan) 2 mg Q6H PRN PO 05/27/16 12:30 (Ativan Inj) 2 mg Q6H PRN IM 05/27/16 12:30 (Cogentin) 1 mg Q12HR PRN PO 05/27/16 12:30 (Cogentin Inj) 1 mg Q12HR PRN IM 05/27/16 12:30 (Benadryl) 50 mg HS PRN PO 05/27/16 12:30 (Norvasc) 5 mg DAILY PO 05/28/16 09:00 Family History See above Social History See above Patient's Strengths (min. 2) In a monitored setting. Supportive family and case finisher. Physical Exam A physical examination was completed in the emergency room by the ER staff and the patient was medically cleared. On my examination today, the patient is in no acute physical distress. She is fairly well-nourished and well-developed. No abnormal motor movements noted. Laboratories and vital signs reviewed. Vital Signs Vital Signs Date Time Temp Pulse Resp B/P Pulse Ox O2 Delivery O2 Flow Rate FiO2 05/27/16 12:21 98.2 71 18 145/106 99 05/27/16 06:27 Room Air Lab Results Item Value Date Time White Blood Count 6.8 TH/MM3 05/24/162316 Hemoglobin 14.1 GM/DL 05/24/162316 Platelet Count 277 TH/MM3 05/24/162316 Sodium Level 142 MEQ/L 05/24/162316 Potassium Level 3.9 MEQ/L 05/24/162316 Chloride Level 106 MEQ/L 05/24/162316 Carbon Dioxide Level 29.9 MEQ/L 05/24/162316 Blood Urea Nitrogen 9 MG/DL 05/24/162316 Creatinine 0.73 MG/DL 05/24/162316 Aspartate Amino Transf (AST/SGOT) 14 U/L L 05/24/162316 Alanine Aminotransferase (ALT/SGPT) 29 U/L 05/24/162316 Alkaline Phosphatase 69 U/L 05/24/162316 Ethyl Alcohol Level LESS THAN 3 MG/DL 05/24/162316 Mental Status Examination Patient is casually dressed. She is quite disheveled. She is awake and alert and oriented to person and hospital. No abnormal motor movements noted but the patient is fairly psychomotor agitated at this point. Language and fund of knowledge seem average for age. Mood is intensely dysphoric and affect is restricted and consistent with stated mood. Thought process more disorganized than in previous encounters. Associations are fairly loose. Paranoia is even more prominent than usual. No AVH. No suicidal or homicidal ideation but patient is decidedly unreliable to contract for safety at present. Insight and judgment are poor. 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 Patient is well known within the psychiatric system here and has had multiple presentations since last summer for severe paranoia. It has been my diagnosis in the past of this paranoia is chiefly related to a paranoid personality disorder and there are certainly features today that continue to suggest that diagnosis. However, patient's presentation today is decidedly different from previous presentations in the degree of associated thought disorganization. Also, there are more pressing concerns for significant functional impairment, and it seems that the patient has lost her housing, at least in part as a consequence of her mental illness. Moreover, the patient is refusing treatment for hypertensive urgency, and I do suspect this has a paranoid basis as well. Patient has apparently done well in the past with Invega Sustenna per NH CM, and I had gotten this history as well from her psychiatrist at the NH, Dr. Stark during her first admission here. I would normally ensure oral tolerability to the relevant agent before starting a long-acting injectable, but on the reassurance from our [facility] contacts of good tolerability and given the exigencies of the case, I think it is imperative to begin prompt treatment with an agent with known efficacy in this patient. The patient will not accept oral medications, and so we will administer Invega Sustenna now as it does not require oral supplementation. Patient requires psychiatric hospitalization at this time for safety, observation, and stabilization. --Admit inpatient --Involuntary status. I have completed first opinion. Consult for second opinion. Request healthcare surrogate and guardian advocate. --Hospitalist consultation appreciated. Patient declined antihypertensives. Norvasc has been ordered should the patient begin to accept oral meds. --Initiate Invega Sustenna 234 mg IM now. Plan for a booster dose of Invega Sustenna in 4-7 days as per explosive operator grenade recommendations. --Ativan as needed for agitation, Cogentin as needed for EPS, Benadryl as needed for sleep --Vitals every shift --Counselor to see --Disposition planning --Estimated length of stay: 10-13 days unless the patient accepts voluntary transfer to a [facility] treatment facility as noted above. Discharge Planning Pending psychiatric stabilization. Request HC Surrog/Guard Advoc?: Yes Problem Qualifiers (1) Psychosis: Qualified Code: F28 - Other psychotic disorder not due to substance or known physiological condition Erickson Do MD May 27, 2016 15:42
[2016-05-27] MEDS: PALIPERIDONE PALMITATE 234 MG/1.5 ML SYRINGE IM ONE (16:00)
[2016-05-27] MEDS ORDERED: LORazepam 2 MG/ML VIAL IM ONE (16:15)
[2016-05-27] MEDS ORDERED: HALOPERIDOL LACTATE 5 MG/ML AMP IM ONE (16:15)
[2016-05-27] MEDS ORDERED: diphenhydrAMINE HCL 50 MG/ML VIAL IM ONE (16:15)
[2016-05-28 05:23] VITALS: BP 150/90; PULSE 68; RESP 18; TEMP 97.9; O2SAT 97
[2016-05-28] MEDS: amLODIPine BESYLATE 5 MG TAB PO SCH ×2 (08:35→08:38)
[2016-05-28] MEDS: NICOTINE 21 MG/24 HR PATCH T-DERMAL SCH ×2 (08:35→08:39)
[2016-05-28 09:05] LABS: ANION GAP 7 MEQ/L (5-15); BICARBONATE 28.3 MEQ/L (21.0-32.0); BLOOD UREA NITROGEN 13 MG/DL (7-18); CHLORIDE 106 MEQ/L (98-107); GLOMERULAR FILTRATION RATE 70 ML/MIN (>89); HDL CHOLESTEROL 37.3 MG/DL (40.0-60.0); LDL CHOLESTEROL 93 MG/DL (0-99); SODIUM (NA) 141 MEQ/L (136-145)
[2016-05-28 12:57] LABS: HEMOGLOBIN A1a 0.9 %; HEMOGLOBIN A1b 1.3 %; HEMOGLOBIN Ao 87.1 %; HEMOGLOBIN LA1C 1.9 %; HEMOGLOBIN P3 3.3 %
[2016-05-28] MEDS: LORazepam 2 MG/ML VIAL IM PRN (13:26)
--- NOTE | 2016-05-28 17:02 | HHI.PYPN ---
Subjective Remarks This is a request for second opinion from Dr. Do. Patient was seen, case discussed with nursing, and admission paperwork was reviewed. Patient is diagnosed either with a psychotic disorder or delusional personality disorder by admitting physician. She was administered a 1 time dose today to sustain at 234 with a follow-up dose coming in the couple days. Per nursing patient has been labile and loud, yelling on the phone and that other patients. She had to receive an ETO of Ativan before this interview. Patient was interviewed in bed where she was mildly sedated. Continues to have poor insight into her admission. Thought process is disorganized. Evidence of paranoia. She continues to refuse her blood pressure medications though her hypertensive urgency has improved and her numbers are lower. Objective Alert: Yes [place]: Person, Place, Date Mood: Agitated Affect: Labile Memory Intact: Comment (not tested) Hallucinations: Auditory (appears internally preocupied. ) Delusions: Yes Delusion Type: Paranoid Suicidal: Ideation (unable to assess) Homicidal: Ideation (unable to assess.) Insight/Judgement poor Labs Test 05/28/16 08:24 Sodium Level 141 MEQ/L Potassium Level 4.0 MEQ/L Chloride Level 106 MEQ/L Carbon Dioxide Level 28.3 MEQ/L Anion Gap 7 MEQ/L Blood Urea Nitrogen 13 MG/DL Creatinine 0.87 MG/DL Estimat Glomerular Filtration 70 ML/MIN Rate Random Glucose 123 MG/DL Hemoglobin A1c 5.2 % Calcium Level 9.0 MG/DL Triglycerides Level 254 MG/DL Cholesterol Level 181 MG/DL LDL Cholesterol 93 MG/DL HDL Cholesterol 37.3 MG/DL Cholesterol/HDL Ratio 4.85 RATIO Vitals/IOs Vital Signs Date Time Temp Pulse Resp B/P Pulse Ox O2 Delivery O2 Flow Rate FiO2 05/28/16 05:23 97.9 68 18 150/90 97 05/27/16 06:27 Room Air Intake and Output 05/27/16 05/27/16 05/28/16 08:00 16:00 00:00 Intake Total 25 ml Balance 25 ml Assessment & Plan Problem List: (1) Psychosis ICD Code: F29 (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 Criteria include paranoia and disorganized behavior. Encourage compliance with blood pressure medication Justification for Cont. Inpt. Patient will decompensate in a less restrictive setting Request HC Surrog/Guard Advoc?: Yes Problem Qualifiers (1) Psychosis: Qualified Code: F28 - Other psychotic disorder not due to substance or known physiological condition Rachid Dorantes DO May 28, 2016 17:02
[2016-05-29] MEDS: LORazepam 2 MG/ML VIAL IM PRN (03:40)
[2016-05-29 06:12] VITALS: BP 153/88; PULSE 98; RESP 18; TEMP 97.8; O2SAT 92
[2016-05-29] MEDS: NICOTINE 21 MG/24 HR PATCH T-DERMAL SCH (08:31)
[2016-05-29] MEDS: amLODIPine BESYLATE 5 MG TAB PO SCH (08:31)
--- NOTE | 2016-05-29 16:33 | HHI.PYPN ---
Subjective Remarks Patient was seen and case discussed with nursing. Patient remains irritable, disheveled, intrusive and perseverative. Continues to refuse her antihypertensive medications. Thought process is illogical and tangential. She is loud and yelling on the phone but was able to be redirected by nursing. Per nursing she received an ETO early in the morning. Continues to have poor insight denying psychotic symptoms Objective Alert: Yes [place]: Person, Place, Date Mood: Agitated Affect: Labile Memory Intact: Comment (not tested) Hallucinations: Auditory (appears internally preocupied. 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 Inpt. Patient will decompensate in a less restrictive setting Request HC Surrog/Guard Advoc?: Yes Problem Qualifiers (1) Psychosis: Qualified Code: F28 - Other psychotic disorder not due to substance or known physiological condition Rachid Dorantes DO May 29, 2016 16:33
[2016-05-30] MEDS: diphenhydrAMINE HCL 50 MG CAP PO PRN (00:03)
[2016-05-30] MEDS: amLODIPine BESYLATE 5 MG TAB PO SCH (09:00)
[2016-05-30] MEDS: NICOTINE 21 MG/24 HR PATCH T-DERMAL SCH (09:00)
--- NOTE | 2016-05-30 14:10 | HHI.PYPN ---
Subjective Remarks Patient seen and examined with counselor. Chart reviewed. Case discussed with nursing staff who report patient remains argumentative, impulsive, loud and intrusive. On my examination today, patient continues to display all of these traits. She is slightly less frankly disorganized in her thought process however, since receiving Invega Sustenna before the weekend. She does remain quite faultfinding and grudge-holding. She remains paranoid. She denies SI or HI, but only after considerable delay. No side effects from medications. Patient's VA CM, Ms. Blake, was on the unit today visiting with patient. Ms. Blake reports that she has arranged an inpatient bed at the [facility] and requests that I speak with the psychiatrist there, Dr. Menjivar, which I have done. Patient may go to [facility] but only voluntarily. Counselor Ms. Mauro later informs me that patient is refusing to sign the necessary paperwork on account of her paranoia. Review of Systems ROS Limitations: Poor Historian Other No physical complaints today. Objective Alert: Yes [place]: Person, Place, Date Mood: Angry, Anxious, Oppositional Affect: Labile Memory Intact: Comment (not formally assessed) Hallucinations: Other (No reported AVH) Delusions: Yes Delusion Type: Paranoid Suicidal: Ideation (Denies SI) Homicidal: Ideation (Denies HI) Insight/Judgement Poor Remarks Thought process somewhat more linear today. Speech is a little less loud and angry today. No motoric abnormalities noted. Labs Labs reviewed. No new labs. 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 Patient continues to refuse antihypertensives although her blood pressure is somewhat less dangerously elevated today versus before the weekend. Encourage fluids and recheck BMP for GFR in the morning. Continue other medications and care as ordered. Justification for Cont. Inpt. Impairments in reality construction and social functioning. Risk for decompensation. Discharge Planning Possible discharge to the [facility] versus retaining the patient here involuntarily until she returns to her psychiatric baseline. Request HC Surrog/Guard Advoc?: Yes Problem Qualifiers (1) Psychosis: Qualified Code: F28 - Other psychotic disorder not due to substance or known physiological condition Erickson Do MD May 30, 2016 14:10
[2016-05-30 18:36] VITALS: BP 160/106; PULSE 89; RESP 18; TEMP 97.7; O2SAT 98
[2016-05-31] MEDS: diphenhydrAMINE HCL 50 MG CAP PO PRN (00:42)
[2016-05-31] MEDS: cloNIDine HCL 0.1 MG TAB PO PRN (00:44)
[2016-05-31 00:50] VITALS: BP 193/105; PULSE 79; RESP 20; TEMP 97.8; O2SAT 97
[2016-05-31 08:01] LABS: BICARBONATE 27.4 MEQ/L (21.0-32.0)
[2016-05-31] MEDS: amLODIPine BESYLATE 5 MG TAB PO SCH (09:00)
[2016-05-31] MEDS: NICOTINE 21 MG/24 HR PATCH T-DERMAL SCH (09:00)
--- NOTE | 2016-05-31 09:35 | HHI.PYPN ---
Subjective Remarks Pt seen and examined in treatment team with RN, counselor and OT. Chart reviewed. Patient continues to refuse antihypertensives and BPs are climbing again. Case discussed in treatment team. On my examination today patient is calmer but remains quite paranoid. She says, "I improvise, overcome and adapt. I can't be with the one I love. I got hairy legs. [facility]. I don't like this woman, Angela Lemus. She's Pérez in Charge. Officer Mary. Is he the local delivery driver in [facility]? My brother came and gave me a gift card for the [employer] near the [employer]. I ave $280 in the bank unless [employer] wants to kill me. Sometimes, I know Turkmen." No reported side effects from medications. Review of Systems ROS Limitations: Poor Historian Other No reported headache, chest pain, shortness of breath or other symptoms of hypertensive urgency or emergency. No other physical complaints today. Objective Alert: Yes [place]: Person, Place, Date Mood: Other (calmer today but remained somewhat anxious and oppositional) Affect: Labile Memory Intact: Comment (not formally assessed) Hallucinations: Other (none) Delusions: Yes Delusion Type: Paranoid Suicidal: Ideation (no suicidal ideation) Homicidal: Ideation (no homicidal ideation) Insight/Judgement Poor Remarks No abnormal motor movements noted. Labs Test 05/31/16 07:10 Sodium Level 139 MEQ/L Potassium Level 4.0 MEQ/L Chloride Level 105 MEQ/L Carbon Dioxide Level 27.4 MEQ/L Anion Gap 7 MEQ/L Blood Urea Nitrogen 14 MG/DL Creatinine 0.73 MG/DL Estimat Glomerular Filtration 86 ML/MIN Rate Random Glucose 97 MG/DL Calcium Level 8.9 MG/DL Labs reviewed. GFR improved. No electrolyte abnormalities noted. 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 She is also somewhat calmer with the benefit of antipsychotic treatment. Booster dose of Invega Sustenna 156 mg IM today. Encourage antihypertensives. Continue other medications include care as ordered. Justification for Cont. Inpt. Impairments in reality construction and social functioning. Risk for decompensation. Discharge Planning Counselor to reach out to case assistant from the [place]. If the patient is too paranoid to sign the paperwork for transfer to [facility], we could still use the [place] case assistant's help to arrange for some sort of placement through [facility] facilities such as a domiciliary after discharge from here. Request HC Surrog/Guard Advoc?: Yes Problem Qualifiers (1) Psychosis: Qualified Code: F28 - Other psychotic disorder not due to substance or known physiological condition Erickson Do MD May 31, 2016 09:35
[2016-05-31] MEDS ORDERED: PALIPERIDONE PALMITATE 156 MG/ML SYRINGE IM ONE (09:45)
[2016-05-31 20:00] VITALS: BP_SYST 160; BP_SYST 167; BP_DIAS 86; BP_DIAS 92; PULSE 94; RESP 19; TEMP 98.4; O2SAT 98
[2016-06-01] VITALS: BP 182/90; PULSE 72; RESP 16; TEMP 97.9; O2SAT 100
[2016-06-01] MEDS: LORazepam 2 MG/ML VIAL IM PRN (04:13)
[2016-06-01] MEDS: amLODIPine BESYLATE 5 MG TAB PO SCH (08:44)
[2016-06-01] MEDS: NICOTINE 21 MG/24 HR PATCH T-DERMAL SCH (08:48)
--- NOTE | 2016-06-01 10:37 | HHI.PYPN ---
Subjective Remarks Patient seen and examined with counselor. Chart reviewed. Case discussed with nursing staff. Patient apparently required Ativan overnight for agitation but did accept her oral antihypertensive this morning. On my examination today, the patient remains quite paranoid but seems calmer and less confrontational. She reports that she would like to leave the hospital but realizes that it is in her best interests to remain to see if some sort of placement can be arranged as she is otherwise homeless. Some ongoing thought disorganization, but this seems again improved today. She remains fairly demanding and dictating of care, but I suspect this represents a component of her baseline personality. Denies side effects from medications. Review of Systems ROS Limitations: Poor Historian Other No physical complaints today Objective Alert: Yes [place]: Person, Place, Date Mood: Oppositional Affect: Blunted Memory Intact: Comment (not formally assessed) Hallucinations: Other (no AVH) Delusions: Yes Delusion Type: Paranoid Suicidal: Ideation (no SI) Homicidal: Ideation (no HI) Insight/Judgement Poor but likely approaching patient's recent baseline. Remarks No abnormal motor movements noted. Thought process more linear today. Speech within normal limits for rate, tone and volume. Labs Labs reviewed. No new labs. 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 She does seem to be improving with this medication and may also have derived some benefit from the benzodiazepine she received PRN overnight. To consider a scheduled benzodiazepine if patient will accept it. Patient's thought disorder is resolving and I suspect that she is approaching her baseline condition. I will therefore ask the nursing staff to see if the patient will sign in voluntarily. Continue other medications and care as ordered. Justification for Cont. Inpt. Risk for decompensation Discharge Planning Possible placement. Hopeful for Monday/Monday discharge. Request HC Surrog/Guard Advoc?: Yes Problem Qualifiers (1) Psychosis: Qualified Code: F28 - Other psychotic disorder not due to substance or known physiological condition Erickson Do MD Jun 01, 2016 10:37
[2016-06-01 21:38] VITALS: BP 158/91; PULSE 78; RESP 16; TEMP 98; O2SAT 96
[2016-06-02 05:43] VITALS: BP 170/96; PULSE 98; RESP 18; TEMP 97.7; O2SAT 96
[2016-06-02] MEDS: amLODIPine BESYLATE 5 MG TAB PO SCH (08:28)
[2016-06-02] MEDS: NICOTINE 21 MG/24 HR PATCH T-DERMAL SCH (08:28)
--- NOTE | 2016-06-02 16:37 | HHI.PYPN ---
Subjective Remarks Patient seen and examined. Chart reviewed. Case discussed with nursing staff. Per nursing staff, patient has been somewhat rude and obnoxious but no real behavioral problem otherwise. She does continue to refuse all oral medications , including the antihypertensive. Patient insists on conducting the interview in the hallway today. She says that she has spoken with her contacts at the [facility] and they are working on arranging some sort of stable housing for her. She is agreeable to remaining here in the hospital until this can be arranged. Knowing that it is anxiety provoking for her to be in the hospital setting, I offer her a low-dose scheduled benzodiazepine to ameliorate this but she declines. She notes that her brother is bringing in some clothing and other supplies for her. She denies side effects from the Invega Sustenna. Review of Systems Other No physical complaints today Objective Alert: Yes [place]: Person, Place, Date Mood: Oppositional (perhaps a little less today) Affect: Blunted Memory Intact: Comment (not formally assessed) Hallucinations: Other (none) Delusions: Yes Delusion Type: Paranoid (perhaps a little less) Suicidal: Ideation (none) Homicidal: Ideation (none) Insight/Judgement Poor Remarks No abnormal motor movements noted. Thought process fairly linear. Grooming and self-care seem to be improving somewhat. Labs Labs reviewed. No new labs. 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 Continue to offer oral antihypertensive. Patient declines any other medications at this time. Continue other care as ordered. Justification for Cont. Inpt. Risk for decompensation [facility] Planning [facility] Case discussed with counselor. Request HC Surrog/Guard Advoc?: Yes Problem Qualifiers (1) Psychosis: Qualified Code: F28 - Other psychotic disorder not due to substance or known physiological condition Erickson Do MD Jun 02, 2016 16:37
[2016-06-02 18:00] VITALS: BP 158/93; PULSE 79; RESP 18; TEMP 99.2; O2SAT 100
[2016-06-02 18:01] VITALS: PULSE 79; TEMP 99.2
[2016-06-02] MEDS: cloNIDine HCL 0.1 MG TAB PO PRN (18:27)
[2016-06-03] MEDS: diphenhydrAMINE HCL 50 MG CAP PO PRN (02:30)
[2016-06-03 06:07] VITALS: BP 153/78; PULSE 76; RESP 18; TEMP 98.3; O2SAT 98
[2016-06-03] MEDS: amLODIPine BESYLATE 5 MG TAB PO SCH (08:52)
[2016-06-03] MEDS: NICOTINE 21 MG/24 HR PATCH T-DERMAL SCH (08:53)
[2016-06-03] MEDS ORDERED: PALI156P IM (11:48)
--- NOTE | 2016-06-03 11:49 | HHI.DS ---
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 Guevara is a 45 year-old female with a history of psychotic disorder versus paranoid personality disorder who presented to the ED under an ex parte order initiated by her brother, Brant Preston. I have reviewed Mr. Preston's affidavit in some detail and it indicates that the patient has been experiencing paranoia and neglect of her affairs including not buying any food and allowing her electric to be turned off. Appended to the ex parte order is a narrative from the property assessment monitor at the patient's rental property detailing over a week's worth of behaviors prior to the new year. Patient is well known to me from previous hospitalizations, most recently a brief stay about 2 weeks ago. Of note, patient is presently experiencing hypertensive urgency per hospitalist informatics consultant's notes and is refusing antihypertensives. Patient seen and examined with counselor and RN. Chart reviewed. Case discussed with RN. Patient presents today as more frankly disorganized and paranoid than is typical for her. She is quite irritable and dysphoric. She initially refuses to conduct the interview until the nurse brings her a towel to wipe some chocolate syrup off her face. The nurse complies, and the patient berates him for bringing her the wrong kind of towel and says, "fuck it, let's go Sanchez [referring to me]. My face is dirty; I can't see. My ovaries work. None of your business." When I ask what brought her into the hospital, she says , "a bottle of Bryant Telles. Officer Robots knocked on my door. Round and round we go. Where we stop, no one know. I'm being kicked out of my apartment. I need a public speaking coach. I don't want to talk to Helen or Juan Carlos. I need a public speaking coach, not just someone that wants to get famous and meet Krishan Her." When I inquire as to whether she is concerned about her seriously elevated blood pressure, she replies, "I've been drinking quite a bit of soda, and their uniform is awesome, too. If Guicho Mouse says I can leave today. My Aunt Love who took me to [facility]. Do we have identity theft here in [place], Dr. Sanchez?" She then goes on a tirade against her brother, noting "he must have a powerful penis to put me in here." Limited psychiatric interview because of patient's degree of psychiatric impairment. I'm called from the unit after departing by the nurse who notes that the patient is growing increasingly aggressive and agitated. She had been medicated with Zyprexa IM in the ED about 6 hours ago. I have ordered her medicated now with Haldol, Ativan and Benadryl IM ETO. I did obtain collateral from patient's brother Mr. Preston [phone] given the patient's degree of psychiatric impairment on this occasion. He notes that the patient used to do well on a long-acting injectable antipsychotic but has been off of that for about a year. He notes that her problematic behaviors have escalated quite a bit within the last several weeks and she has now been evicted from her house. He is very concerned for his sister's safety and well- being and is hopeful that we can provide some treatment that will help. I additionally obtained collateral from patient's correctional counselor/case manager at the [place] Vince Blake [phone]. Ms. Blake also expresses a great deal of concern for patient' s mental state and notes that she had been doing very well on Invega Sustenna injections before becoming nonadherent with these in July 2015. She reportedly tolerated these medications well without any noted side effects. Ms. Blake would like to meet with the patient after the weekend to see if she would be willing to go voluntarily to a [place] treatment facility. I am unable to obtain any past psychiatric, family, chemical dependency or social history from the patient at this time given her degree of psychiatric impairment, but I did obtain these during my history and physical examination earlier this month under visit number [id number]. Tobacco Use In Past 30 Days: No Tobacco Past 30 Days Alcohol Use: Never Hospital Course Patient was admitted to a locked, inpatient psychiatric unit. A general medical consultation was obtained and antihypertensives were recommended but the patient was poorly adherent with these even after she was counseled regarding the need to control her blood pressure. Appropriate precautions were in place throughout patient's hospital stay. Patient was seen and examined daily on the unit by psychiatry and also visited by counselor. Medications were adjusted. Patient was started on Invega Sustenna and she was also administered the booster dose of Invega Sustenna. Patient tolerated medications well without side effects. Patient had improvement in her presenting thought disorder with the benefit of antipsychotic treatment. Her level of agitation and disruptiveness reduced with treatment. Her grooming and hygiene improved. She returned to her baseline paranoid personality style. She agreed to sign into the hospital voluntarily. On the day of discharge: Patient seen and examined with nurse. Chart reviewed. Case discussed with nursing staff who reports patient continues to refuse her antihypertensives. On my examination today, the patient is insisting upon discharge from the inpatient psychiatric unit. She denies any suicidal or homicidal ideation. Reviewing the chart, I note that patient is eating well and is independent with her hygiene although her sleep remains somewhat disrupted. Patient presents today as paranoid but without significant degree of thought disorganization. She appears to be at her recent psychiatric baseline. I have entreated her to remain on the inpatient psychiatric unit to allow the [facility] to make housing arrangements for her, but the patient persists in her desire to leave the hospital today. I have no basis to retain her involuntarily under the Samaniego Act after weighing the relevant factors at this time. I will therefore arrange for discharge today AGAINST MEDICAL ADVICE. Patient is to follow-up psychiatrically as arranged by counselor and also with primary care. I have reminded the patient to return to the psychiatric emergency room for any concerning symptoms as part of the general safety plan. Results Blood Pressure 153 / 78 Vital Signs Date Time Temp Pulse Resp B/P Pulse Ox O2 Delivery O2 Flow Rate FiO2 06/03/16 06:07 98.3 76 18 153/78 98 Item Value Date Time White Blood Count 6.8 TH/MM3 05/24/162316 Hemoglobin 14.1 GM/DL 05/24/162316 Platelet Count 277 TH/MM3 05/24/162316 Sodium Level 139 MEQ/L 05/31/16 0710 Potassium Level 4.0 MEQ/L 05/31/16 0710 Chloride Level 105 MEQ/L 05/31/16 0710 Carbon Dioxide Level 27.4 MEQ/L 05/31/16 0710 Blood Urea Nitrogen 14 MG/DL 05/31/16 0710 Creatinine 0.73 MG/DL 05/31/16 0710 Random Glucose 97 MG/DL 05/31/16 0710 Hemoglobin A1c 5.2 % 05/28/16 0824 Aspartate Amino Transf (AST/SGOT) 14 U/L L 05/24/162316 Alanine Aminotransferase (ALT/SGPT) 29 U/L 05/24/162316 Alkaline Phosphatase 69 U/L 05/24/162316 Ethyl Alcohol Level LESS THAN 3 MG/DL 05/24/16 231 Summary of Procedures None done Imaging None done Pending results at discharge: No Medications # of Antipsychotic meds at D/C: 1 Approp Antipsych med options 1 - Minimum of three failed multiple trials of monotherapy. 2 - Documented plan to taper to monotherapy due to previous use of multiple meds OR cross-taper in progress at D/C. 3 - Documentation of augmentation of Clozapine. 4 - Justification other than those listed in allowable values 1-3, document here : Discharge Discharge Date: Jun 03, 2016 Discharge Diagnosis: (1) Psychosis Diagnosis: Principal (Improved) ICD Code: F29 (2) Paranoid personality disorder Diagnosis: Secondary (Chronic, stable) ICD Code: F60.0 GAF on discharge is 50. Mental Status Exam at Disch Patient is casually dressed. She is fairly well groomed and maintaining basic hygiene. She is awake and alert and oriented 3. No motoric abnormalities noted. Speech is within normal limits for rate, tone and volume. Language and fund of knowledge seem average for age. Mood affect are somewhat restricted and dysphoric. Thought process much more linear versus admission. Paranoia persists, but this too seems somewhat decreased versus admission. No AVH. Denies suicidal or homicidal ideation. Insight and judgment are fair to poor at best. Pt Condition on Discharge: Guarded (AMA discharge) Discharge Disposition: Discharge Home Discharge Instructions Diet Instructions: As Tolerated, No Restrictions Activities you can perform: Weight Bearing as Gavin Scheduled Appointment: as per counselor's notes New Medications: Paliperidone Palmitate Inj (Invega Sustenna Inj) 156 Mg/Ml Inj 156 MG IM Q28D Next dose of Invega Sustenna due on 06/28/2016. Schizophrenia #1 Ref 0 VIAL Amlodipine (Norvasc) 5 Mg Tab 5 MG PO DAILY Blood Pressure Management Days 15 Ref 1 TAB Discharge Time <= 30 minutes Discharge/Advance Care Plan Health Problems: (1) Psychosis (2) Paranoid personality disorder Goals to promote your health * To prevent worsening of your condition and complications * To maintain your health at the optimal level Directions to meet your goals Take your medications as prescribed Follow your dietary instruction Follow activity as directed Keep your appointments as scheduled Take your immunizations and boosters as scheduled If your symptoms worsen call your PCP, if no PCP go to Urgent Care Center or Emergency Room For 21/11 questions related to your inpatient stay or results of tests pending at discharge, please contact Dr. Erickson Do at Smoking is Dangerous to Your Health. Avoid second hand smoking Problem Qualifiers (1) Psychosis: Qualified Code: F28 - Other psychotic disorder not due to substance or known physiological condition Erickson Do MD Jun 03, 2016 11:48
[2016-06-03] MEDS ORDERED: AMLO5 PO (11:50)
== END 2016-06-03 15:10 | disposition left against medical advice (07) | DRG 885 ==
LOC: NEPJ 16:56 → NEDA 05-27 09:57 → H270 05-27 11:40
PROVIDERS: ADMIT Psychiatry & Neurology Psychiatry; ATTEND Psychiatry & Neurology Psychiatry
DX: F29 Unspecified psychosis not due to a substance or known physiological condition (principal); Z91.14 Patient's other noncompliance with medication regimen; I16.0 Hypertensive urgency; F60.0 Paranoid personality disorder; Z91.19 Patient's noncompliance with other medical treatment and regimen; N92.6 Irregular menstruation, unspecified; Z60.2 Problems related to living alone
CPT/HCPCS: 80048; 80053; 80061; 80320; 83036; 85025; 96372; J1200; J1630; J2060; J2426; Q0163

== ENCOUNTER 2016-06-16 10:54 | Inpatient (IN) | payer OTHER ==
[~2016-06-16] VITALS: Ht 170.2 cm; Wt 72.7 kg
[~2016-06-16 10:54] MED LIST changes: +AMLO5 PO; -LISI-519 PO; +PALI156P IM
[2016-06-16 11:06] VITALS: BP 208/107; PULSE 79; RESP 20; TEMP 97.8; O2SAT 98
--- NOTE | 2016-06-16 11:12 | PD ---
HPI Chief Complaint: Samaniego Act/Psychotic symptoms Time Seen by Provider: 11:03 Travel History International Travel<30 days: No Contact w/Intl Traveler<30days: No Traveled to known affect area: No History of Present Illness HPI 45-year-old female brought in [facility] under the Samaniego act for schizoaffective/psychotic symptoms noted by the [facility]. Patient was Samaniego acted while at the [facility]. It was noted that her blood pressure was elevated as well. Patient is oriented to place and self, but is making no sense in her thought process otherwise. She denies any medical issues currently. Patient does have a history of low potassium in the past. She states she did take blood pressure medication back in 2010 but not for many years. She denies suicidal ideation. She does however appear very explosive and loud although redirectable at this time. She is thought to be a danger to others. She has no known drug allergies. PFSH Past Medical History Bipolar Disorder: Yes Anxiety: No Depression: No Cancer: No Cardiovascular Problems: No Cerebrovascular Accident: No Diabetes: No Diminished Hearing: No Endocrine: No Gastrointestinal Disorders: No Genitourinary: No Headaches: No Hypertension: Yes Immune Disorder: No Implanted Vascular Access Dvce: No Musculoskeletal: No Neurologic: No Psychiatric: No Reproductive: No Respiratory: No Schizophrenia: Yes Seizures: No Past Surgical History Ear Surgery: Yes Other Surgery: Yes (facial surger 1991, septum ) Social History Alcohol Use: Yes (4 GUINESS) Tobacco Use: No Allergies-Medications (Allergen,Severity, Reaction): Coded Allergies: No Known Allergies (Unverified , 06/16/16) Reported Meds & Prescriptions Reported Meds & Active Scripts Active Norvasc (Amlodipine Besylate) 5 Mg Tab 5 Mg PO DAILY 15 Days Invega Sustenna Inj (Paliperidone Palmitate) 156 Mg/Ml Inj 156 Mg IM Q28D Next dose of Invega Sustenna due on 06/28/2016. Review of Systems ROS Limitations: Uncooperative, Psychotic Except as stated in HPI: all other systems reviewed are Neg General / Constitutional: No: Fever Eyes: No: Visual changes HENT: No: Headaches Cardiovascular: No: Chest Pain or Discomfort Respiratory: No: Shortness of Breath Gastrointestinal: No: Abdominal Pain Genitourinary: No: Dysuria Musculoskeletal: No: Pain Skin: No Rash Neurologic: No: Weakness Psychiatric: No: Depression Endocrine: No: Polydipsia Hematologic/Lymphatic: No: Easy Bruising Physical Exam Exam Limitations: Psychotic Narrative GENERAL: Patient appears in no acute distress. SKIN: Warm and dry. Normal color. Normal turgor. No signs of trauma. HEAD: Atraumatic. Normocephalic. EYES: Pupils equal and round. No scleral icterus. No injection or drainage. ENT: No nasal bleeding or discharge. Mucous membranes pink and moist. Pharynx is normal. NECK: Trachea midline. Supple. CARDIOVASCULAR: Regular rate and rhythm. No murmurs gallops or rubs. RESPIRATORY: No accessory muscle use. Clear to auscultation. Breath sounds equal bilaterally. MUSCULOSKELETAL: Extremities without clubbing, cyanosis, or edema. No obvious deformities. NEUROLOGICAL: Awake and alert. No obvious cranial nerve deficits. Motor grossly within normal limits. Five out of 5 muscle strength in the arms and legs. Normal speech. PSYCHIATRIC: Patient is confrontational and uncooperative. He is aware of person and place however, is making nonsensical statements. Data Data Last Documented VS Vital Signs Date Time Temp Pulse Resp B/P Pulse Ox O2 Delivery O2 Flow Rate FiO2 06/16/16 14:46 70 18 186/104 100 Room Air 06/16/16 12:27 97.8 Orders Urinalysis - C+S If Indicated (06/16/16 11:12) Psych Screen (06/16/16 11:12) Drug Screen, Random Urine (06/16/16 11:12) Propranolol (Inderal) (06/16/16 11:15) Diet Regular Basic (06/16/16 Lunch) Urine Culture (06/16/16 13:15) Sulfamet-Trimeth Ds 800-160 Mg (Bactrim (06/16/16 14:00) Admit Order (Ed Use Only) (06/16/16 ) Admit To Inpatient Psych (06/16/16 ) Code Status (06/16/16 16:41) Vital Signs (Adult) ARIS.Q12H.E (06/16/16 16:41) Activity Oob Ad Aga (06/16/16 16:41) Level Of Observation (Psych) (06/16/16 16:41) Aims-Abnormal Invol Move Scale ONCE (06/16/16 16:41) Acetaminophen (Tylenol) (06/16/16 16:45) Magnesium Hydroxide Liq (Milk Of Magnesi (06/16/16 18:00) Al-Mag Hy-Si 40-40-4 Mg/Ml Liq (Mag-Al P (06/16/16 17:00) Lipid Profile (06/17/16 06:00) Hemoglobin (Hgb) A1c (06/17/16 06:00) Amlodipine (Norvasc) (06/17/16 09:00) Paliperidone Inj (Invega Sustenna Inj) (06/16/16 18:00) Labs Laboratory Tests Test 06/16/16 13:15 Urine Color LIGHT-YELLOW Urine Turbidity HAZY Urine pH 7.0 Urine Specific [place] 1.005 Urine Protein NEG mg/dL Urine Glucose (UA) NEG mg/dL Urine Ketones NEG mg/dL Urine Occult Blood NEG Urine Nitrite NEG Urine Bilirubin NEG Urine Urobilinogen LESS THAN 2.0 MG/DL Urine Leukocyte Esterase LARGE Urine RBC 5 /hpf Urine WBC 6 /hpf Urine Squamous Epithelial 13 /hpf Cells Urine Bacteria MOD /hpf Microscopic Urinalysis Comment CULTURE INDICATED Urine Opiates Screen NEG Urine Barbiturates Screen NEG Urine Amphetamines Screen NEG Urine Benzodiazepines Screen NEG Urine Cocaine Screen NEG Urine Cannabinoids Screen NEG MDM Medical Decision Making Medical Screen Exam Complete: Yes Emergency Medical Condition: Yes Medical Record Reviewed: Yes Differential Diagnosis Psychotic symptoms. Samaniego act. History of low potassium. Need for Medical clearance for psychiatric evaluation. Narrative Course Patient is medically stable at time of exam. Labs ordered for psychiatric clearance including CBC, CMP, urinalysis, and urine drug screen. Patient is given 20 mg propranolol by mouth. Patient is medically cleared for psychiatric evaluation. Diagnosis Primary Impression: Psychosis Qualified Code: F29 - Psychosis, unspecified psychosis type Additional Impression: Medical clearance for psychiatric admission Condition: Stable Nhan Mendoza Jun 16, 2016 11:11
[2016-06-16] MEDS ORDERED: PROPRANOLOL HCL 20 MG TAB PO ONE (11:15)
[2016-06-16 12:27] VITALS: BP 149/90; PULSE 68; RESP 20; TEMP 97.8; O2SAT 100
[2016-06-16 13:51] LABS: BACTERIA, URINE MOD /hpf; BLOOD, URINE NEG (NEG); COMMENT (UR) CULTURE INDICATED; CULTURE IF INDICATED CULTURE INDICATED; GLUCOSE,URINE NEG (NEG); KETONE, URINE NEG (NEG); NITRITE,URINE NEG (NEG); SQUAMOUS EPITHELIAL CELL URINE 13 /hpf (0-5); URINE COLOR LIGHT-YELLOW (YELLW/STRAW)
[2016-06-16] MEDS ORDERED: SULFAMETHOXAZOLE-TRIMETHOPRIM DS 800-160 MG TAB PO ONE (14:00)
[2016-06-16 14:12] LABS: AMPHETAMINE, URINE NEG (NEG); BARBITURATES, URINE NEG (NEG); COCAINE, URINE NEG (NEG)
[2016-06-16 14:46] VITALS: BP 186/104; PULSE 70; RESP 18; O2SAT 100
[2016-06-16] MEDS ORDERED: ACETAMINOPHEN 325 MG TAB PO PRN (16:45)
[2016-06-16] MEDS ORDERED: ALUMINUM/MAGNESIUM/SIMETH 30 ML CUP PO PRN (17:00)
[2016-06-16] MEDS ORDERED: MAGNESIUM HYDROXIDE SUSP 30 ML CUP PO PRN (18:00)
[2016-06-16] MEDS ORDERED: PALIPERIDONE PALMITATE 156 MG/ML SYRINGE IM SCH (18:00)
[2016-06-16 18:10] VITALS: BP 127/75; PULSE 86; RESP 18; TEMP 98.3; O2SAT 97
[2016-06-16 18:14] VITALS: BP 171/106; PULSE 67; RESP 18; TEMP 98.2; O2SAT 97
[2016-06-16] MEDS ORDERED: cloNIDine HCL 0.1 MG TAB PO ONE (19:30)
[2016-06-16 20:09] VITALS: BP 159/93; PULSE 67; RESP 18; O2SAT 99
[2016-06-16] MEDS ORDERED: ZIPRASIDONE MESYLATE 20 MG VIAL IM ONE (21:00)
[2016-06-17] MEDS ORDERED: DOCUSATE SODIUM 50 MG/SENNA 8.6 MG TAB PO PRN (05:30)
[2016-06-17] MEDS ORDERED: cloNIDine HCL 0.1 MG TAB PO PRN (05:30)
[2016-06-17] MEDS ORDERED: ALUMINUM/MAGNESIUM/SIMETH 30 ML CUP PO PRN (05:30)
[2016-06-17] MEDS ORDERED: CALCIUM CARBONATE 500 MG CHEWABLE TAB CHEW PRN (05:30)
[2016-06-17] MEDS ORDERED: DOCUSATE SODIUM 100 MG CAP PO PRN (05:30)
[2016-06-17] MEDS ORDERED: amLODIPine BESYLATE 5 MG TAB PO SCH (09:00)
--- NOTE | 2016-06-17 10:08 | HHI.HP ---
Provisional Diagnosis Admission Date Jun 16, 2016 at 16:44 [place] I. 1. Paranoia [place] II. 1. Paranoid Personality Disorder [place] V. GAF is 40 presently Certification of Person's Competence To Provide Express and Informed Consent I have personally examined Viola Guevara , a person being served at [facility] on, Jun 17, 2016 10:08. Express and informed consent means consent voluntarily given in writing, by a competent person, after sufficient explanation and disclosure of the subject matter involved to enable the person to make a knowing and willful decision without any element of force, fraud, deceit, duress, or other form of constraint or coercion. This person is 18 years of age or older, is not now known to be incompetent to consent to treatment with a guardian advocate, and does not have a health care surrogate or proxy currently making medical treatment decisions. I have found this person to be one of the following: [x] Competent to provide express and informed consent, as defined above, for voluntary admission to this facility and is competent to provide express and informed consent for treatment. He/she has the consistent capacity to make well reasoned, willful, and knowing decisions concerning his or her medical or mental health treatment. The person fully and consistently understands the purpose of the admission for examination/placement and is fully capable of personally exercising all rights [place] Incompetent to provide express and informed consent to voluntary admission, and this is incompetent to provide express and informed consent to treatment. The person must be transferred to involuntary status and a petition for a guardian advocate filed with the Circuit Court. [] Refusing to provide express and informed consent to voluntary admission but is competent to provide express and informed consent for treatment. The person must be discharged or transferred to involuntary status. Form shall be completed within 24 hours of a person's arrival at the receiving facility and filed in the clinical record of each person: 1. Admitted on a voluntary basis 2. Permitted to provide express and informed consent to his/her own treatment 3. Allowed to transfer from involuntary to voluntary status 4. Prior to permitting a person to consent to his or her own treatment after having been previously found incompetent to consent to treatment. History of Present Illness Capacity: Has Capacity HPI Ms. Guevara is a 45-year-old female with a history of paranoia variously diagnosed as paranoid personality disorder and primary psychotic disorder who presents under a Samaniego act [facility], which I have reviewed. Patient was evaluated in the ED here and admitted to the inpatient psychiatric unit. Electronic medical record reviewed. She is well-known to me on the psychiatric service here generally from multiple prior inpatient psychiatric stays here. On her last admission last month, we started her on Invega Sustenna. Patient seen and examined with counselor. Chart reviewed. Case discussed with nurse on the inpatient psychiatric unit. On my examination today, in contradistinction to her most recent psychiatric admission, the patient seems to be approximately at her recent psychiatric baseline. There is no evidence of thought disorganization like there was last time. She says "I don't want to be here. I want to go voluntary. I don't know why I'm here. This black abner is here. I don't like him, and I don't want to know him." She says that after leaving the hospital last time, "I went home to the [place] and I got thrown out on my ass. It's all lies. It's low income housing there." She says that since she is in the process of being evicted, she has been moving her belongings into storage. [facility] Samaniego [facility], but she doesn't know why. She denies any suicidal or homicidal ideation. She denies any AVH. She is somewhat dysphoric, as at baseline. She is willing to remain on the unit to allow us to call her [facility] telephonic case manager, which I do with her in the room and leave voicemails, to try to see what services and housing they can link her with on discharge. Interval psychiatric history: Patient denies any interval psychiatric admissions or suicide attempts. She received her last dose of Invega Sustenna on May 31. Interval family history: Unchanged from previous assessments. Interval chemical dependency history: Patient denies any abuse of drugs or alcohol. Interval social history: As above, patient is being evicted from her apartment. She is otherwise homeless. Social history is otherwise unchanged from previous assessments. Review of Systems ROS Limitations: Poor Historian Other No reported physical complaints today. Past Psych History Psychological trauma history No reported trauma history at this time. Violence risk - others (6 mos) Lower imminent risk. Patient denies homicidal ideation. She is chronically paranoid and can be verbally aggressive if pushed, but there is little history of physical violence in our interactions with her. Violence risk - self (6 mos) Lower imminent risk. Patient denies suicidal ideation. Substance Abuse History Drugs/Alcohol past 12 months See above Past Family Social History Coded Allergies: No Known Allergies (Unverified , 06/16/16) Past Medical History See EMR Active Scripts Amlodipine (Norvasc)5 Mg Tab5 Mg PO DAILY 15 Days Ref 1 Prov:Erickson Do MD 06/03/16 Paliperidone Palmitate Inj (Invega Sustenna Inj)156 Mg/Ml [id number] Mg IM Q28D #1 VIAL Ref 0 Next dose of Invega Sustenna due on 06/28/2016. Prov:Erickson Do MD 06/03/16 Current Medications Medications (Trade) Dose Ordered Sig/Tim Route Start Time Stop Time Status Last Admin (Tylenol) 650 mg Q4H PRN PO 06/16/16 16:45 (Milk Of Magnesia Liq) 30 ml DAILY PRN PO 06/16/16 18:00 (Mag-Al Plus Susp Liq) 30 ml Q6H PRN PO 06/16/16 17:00 (Norvasc) 5 mg DAILY PO 06/17/16 09:00 06/17/16 09:18 (Invega Sustenna Inj) 156 mg Q28D IM 06/28/16 09:00 (Colace) 100 mg BID PRN PO 06/17/16 05:30 (Cornelia-Colace) 1 tab BID PRN PO 06/17/16 05:30 (Mag-Al Plus Susp Liq) 30 ml Q6H PRN PO 06/17/16 05:30 (Tums Chew) 1,000 mg TID PRN CHEW 06/17/16 05:30 (Catapres) 0.1 mg Q6H PRN PO 06/17/16 05:30 Family History See above Social History See above Patient's Strengths (min. 2) Maintaining basic hygiene. Verbally fluent. Physical Exam Physical examination completed by ED provider. On my examination today, the patient is well-nourished and well-developed. BMI is 25.1 kg/m. She is in no acute physical distress. No motoric abnormalities noted. Labs and vital signs reviewed. Vital Signs Vital Signs Date Time Temp Pulse Resp B/P Pulse Ox O2 Delivery O2 Flow Rate FiO2 06/16/16 21:13 06/16/16 20:09 67 18 99 Room Air 06/16/16 18:14 98.2 Lab Results Item Value Date Time White Blood Count 6.8 TH/MM3 05/24/162316 Hemoglobin 14.1 GM/DL 05/24/162316 Platelet Count 277 TH/MM3 05/24/16 2317 Sodium Level 139 MEQ/L 06/17/16 1058 Potassium Level 4.3 MEQ/L 06/17/16 1058 Chloride Level 105 MEQ/L 06/17/16 1058 Carbon Dioxide Level 29.2 MEQ/L 06/17/16 1058 Creatinine 0.81 MG/DL 06/17/16 1058 Blood Urea Nitrogen 18 MG/DL 06/17/16 1058 Random Glucose 115 MG/DL H 06/17/16 1058 Aspartate Amino Transf (AST/SGOT) 13 U/L L 06/17/16 1058 Alanine Aminotransferase (ALT/SGPT) 31 U/L 06/17/16 1058 Alkaline Phosphatase 64 U/L 06/17/16 1058 Toxicology and alcohol level negative. Urinalysis with white blood cells and large leukocyte esterase. Urine culture pending. Mental Status Examination Patient is casually dressed. She is mildly disheveled but certainly maintaining basic hygiene. She is awake and alert and oriented 3. No abnormal motor movements noted. Speech is a little loud but otherwise within normal limits for rate and tone. Mood is mildly dysphoric and affect is restricted. Thought process at patient's baseline, fairly linear. No loosening of associations. Paranoia is present. Denies audiovisual hallucinations. Denies suicidal or homicidal ideation. Insight and judgment are chronically fair/poor at best. Assessment & Plan Problem List: (1) Paranoia ICD Code: F22 (2) Paranoid personality disorder ICD Code: F60.0 Assessment & Plan This is a 45-year-old female well known to the psychiatric service here from multiple prior admissions with psychiatric history as detailed above who [facility]. On my examination today, patient seems at her recent psychiatric baseline. She is paranoid, as is typical for her. She does seem to be taking reasonable steps to manage her affairs (e.g. moving her belongings into storage since she is being evicted) and appears to be attending to her basic needs. She says that she has She is denying SI or HI. She does not meet Samaniego Act criteria after weighing the relevant factors. Counselor has been in contact with [facility] case resolution specialist since I evaluated the patient , and it seems from the information that she has obtained that the [facility] is failing to meet this patient where she is at and are placing undue expectations on her. For example, she was apparently declined from the [facility] dom[facility] because she could not attend their groups because of her paranoia. Likewise, she has not been linked with other [facility] housing because she is expected to participate in several seminars as a prerequisite to placement. Apparently they will not provide assistance to the patient through the long weekend. I will admit the patient to the inpatient psychiatric unit voluntarily as long as she is willing to stay in the hopes that we can get the [facility] to provide some real assistance to this . Admit inpatient. Voluntary status. Patient would be due for her next Invega Sustenna booster on 06/28/16. Patient is declining further psychotropic management at this time. Amlodipine for patient's hypertension. Vitals every shift. Counselor to see. Disposition planning. Estimated length of stay: 3-5 days Discharge Planning Possible discharge with assistance from the [facility] after the weekend. Request HC Surrog/Guard Advoc?: No Erickson Do MD Jun 17, 2016 10:08
[2016-06-17 11:30] LABS: ALT (GPT) 31 U/L (10-53); ANION GAP 5 MEQ/L (5-15); AST (GOT) 13 U/L (15-37); BICARBONATE 29.2 MEQ/L (21.0-32.0); BLOOD UREA NITROGEN 18 MG/DL (7-18); CHLORIDE 105 MEQ/L (98-107); GLOMERULAR FILTRATION RATE 76 ML/MIN (>89); POTASSIUM 4.3 MEQ/L (3.5-5.1); SODIUM (NA) 139 MEQ/L (136-145)
[2016-06-17 11:32] LABS: ALKALINE PHOSPHATASE 64 U/L (45-117); HDL CHOLESTEROL 34.6 MG/DL (40.0-60.0); LDL CHOLESTEROL 66 MG/DL (0-99); TOTAL BILIRUBIN ADULT 0.6 MG/DL (0.2-1.0)
[2016-06-17 14:16] LABS: HEMOGLOBIN A1a 0.9 %; HEMOGLOBIN A1b 1.4 %; HEMOGLOBIN Ao 86.5 %; HEMOGLOBIN LA1C 1.9 %; HEMOGLOBIN P3 3.5 %
[2016-06-17] MEDS ORDERED: BACT800T5 PO (14:45)
[2016-06-17] MEDS ORDERED: SULFAMETHOXAZOLE-TRIMETHOPRIM DS 800-160 MG TAB PO SCH (21:00)
[2016-06-28] MEDS ORDERED: PALIPERIDONE PALMITATE 156 MG/ML SYRINGE IM SCH (09:00)
== END 2016-06-17 15:30 | disposition left against medical advice (07) | DRG 883 ==
LOC: NEDAMB 10:54 → NEDA 16:44 → H270 20:34
PROVIDERS: ADMIT Psychiatry & Neurology Psychiatry; ATTEND Psychiatry & Neurology Psychiatry
DX: F60.0 Paranoid personality disorder (principal); I10 Essential (primary) hypertension; Z59.0 Homelessness
CPT/HCPCS: 80053; 80061; 80307; 81001; 83036; 87086; 99285; J3486